=== PATIENT | male | born 1995 | race Caucasian/White ===

== ENCOUNTER 2021-01-16 09:47 | Emergency (ER) | payer OTHER ==
[~2021-01-16] VITALS: Ht 185.4 cm; Wt 167.8 kg
[2021-01-16 10:17] LABS: URINE BILIRUBIN NEGATIVE (Negative); URINE BLOOD NEGATIVE (Negative); URINE CLARITY CLEAR; URINE COLOR YELLOW; URINE GLUCOSE-RANDOM NEGATIVE (Negative); URINE KETONES TRACE (Negative); URINE LEUKOCYTES-REFLEX NEGATIVE (Negative); URINE NITRITE-REFLEX NEGATIVE (Negative); URINE PROTEIN NEGATIVE (Negative); URINE SPECIFIC GRAVITY 1.025 (1.005-1.030); URINE UROBILINOGEN 0.2 E.U./dl (0.2-1.0)
[2021-01-16 10:31] VITALS: BP 145/88
== END 2021-01-16 10:35 | disposition home or self-care (01) ==
LOC: M.ERS 09:47
PROVIDERS: Emergency Medicine Emergency Medical Services
DX: R30.0 Dysuria (principal); R39.198 Other difficulties with micturition